=== PATIENT | female | born 1965 | race African-American/Black ===

== ENCOUNTER 2017-09-09 12:44 | Emergency (ER) | payer MEDICAID, OTHER ==
[~2017-09-09] VITALS: Ht 160 cm; Wt 99.8 kg
--- NOTE | 2017-09-09 12:53 | NUR ---
PATIENT TO BED 7 AT THIS TIME.
[2017-09-09 12:55] VITALS: BP 176/108
[2017-09-09] MEDS ORDERED: ALBUTEROL SULFATE/IPRATROPIU 3 ML SOL IH ONE (13:00)
[2017-09-09] MEDS ORDERED: methylPREDNISolone SS 125 MG/2 ML VIAL IM ONE (13:00)
[2017-09-09] MEDS ORDERED: diphenhydrAMINE 12.5 MG/5 ML UDC PO ONE (13:00)
--- NOTE | 2017-09-09 13:15 | NUR ---
PATIENT PRESENTS TO ED WITH THROAT TIGHTNESS---POSSIBLE ALLERGIC REACTION S/P EATING BREAD WITH ALMONDS AND PEANUTS TODAY . FULL CLEAR SPEECH, NO HIVES REDNESS NOTED AT THIS TIME] . DENIES N/V/D; SKIN IS PINK/WARM/DRY; AAOX4 WITH EVEN AND STEADY GAIT; LUNGS CLEAR BL; HR EVEN AND REGULAR; PT DENIES ANY FEVER, CP, SOB, OR COUGH AT THIS TIME; PATIENT STATES PAIN OF 0/10 AT THIS TIME; VSS; PATIENT POSITIONED FOR COMFORT; HOB ELEVATED; BEDRAILS UP X2; BED DOWN. ER MD MADE AWARE OF PT STATUS.
--- NOTE | 2017-09-09 13:50 | NUR ---
PT ON CELL PHONE HOLDING CONVERSATION
[2017-09-09 14:42] VITALS: BP 135/83
--- NOTE | 2017-09-09 14:43 | NUR ---
Patient discharged with v/s stable. Written and verbal after care instructions given and explained. Patient alert, oriented and verbalized understanding of instructions. Ambulatory with steady gait. All questions addressed prior to discharge. ID band removed. Patient advised to follow up with PMD. Rx of PREDNISONE/ALBUTEROL given. Patient educated on indication of medication including possible reaction and side effects. Opportunity to ask questions provided and answered.
--- NOTE | 2017-09-09 14:43 | NUR ---
BUS TOKENS PROVIDED TO PT
== END 2017-09-09 14:43 | disposition home or self-care (01) ==
LOC: MED 12:44
DX: T78.1XXA Other adverse food reactions, not elsewhere classified, initial encounter (principal); X58.XXXA Exposure to other specified factors, initial encounter; Z71.6 Tobacco abuse counseling; F17.210 Nicotine dependence, cigarettes, uncomplicated
CPT/HCPCS: 94640; 96372; 99283; J2930; J7620; Q0163

== ENCOUNTER 2017-12-08 22:04 | Emergency (ER) | payer OTHER ==
[~2017-12-08] VITALS: Ht 160 cm; Wt 96.2 kg
[2017-12-08 22:22] VITALS: BP 155/90
[2017-12-08 22:28] VITALS: BP 155/90
--- NOTE | 2017-12-08 22:37 | NUR ---
PATIENT AMBULATED TO BED 3 VIA WHEELCHAIR
--- NOTE | 2017-12-08 22:40 | NUR ---
PT C/O NOT BEING ABLE TO BREATH , 02 SAT 99%, BL EXPIRATORY WHEEZES NOTED, PT STATES SHE HAS BEEN COUGHING "FOREVER". PT DENIES ANY OTHER SYMPTOMS.
--- NOTE | 2017-12-08 22:45 | NUR ---
PT REFUSED TO SIT IN BED, REFUSED EKG, PT STATES THERE IS "POISON IN THE AIR", PT STATES SHE NEEDS A BREATHING TX, PT REFUSED TO USE SUPPLEMENTAL OXYGEN, PT HAS EXCESSIVE SPEECH, IS VERBALLY ABUSIVE TO STAFF.
--- NOTE | 2017-12-08 23:00 | NUR ---
Robinson zelaya in [facility] - 12/08/17 at 2358 by NADEEN PT LEFT AMA, REFUSED TREATMENT, REFUSED TO SIT IN BED.
--- NOTE | 2017-12-08 23:00 | NUR ---
PT LEFT WITH OUT BEING SEEN, PT REFUSED TO WAIT FOR ER MD.
[2017-12-08] MEDS ORDERED: ALBUTEROL 0.083% 2.5 MG/3 ML NEBU INH ONE (23:05)
== END 2017-12-08 23:15 | disposition left against medical advice (07) ==
LOC: MED 22:04
DX: R06.02 Shortness of breath (principal); Z53.21 Procedure and treatment not carried out due to patient leaving prior to being seen by health care provider